=== PATIENT | male | born 1990 | race Caucasian/White ===

== ENCOUNTER 2019-07-14 15:16 | Emergency (ER) | payer OTHER ==
[~2019-07-14] VITALS: Ht 182.9 cm; Wt 97.5 kg
--- NOTE | 2019-07-14 15:19 | NUR ---
[facility] at bedside speaking to the patient.
--- NOTE | 2019-07-14 15:20 | NUR ---
PATIENT TO [facility]
[2019-07-14 15:21] VITALS: BP_SYST 121
[2019-07-14] MEDS ORDERED: IBUPROFEN 800 MG TABLET PO ONE (15:45)
[2019-07-14] MEDS ORDERED: NACL 0.9% 1,000 ML IV ONE (16:30)
[2019-07-14] MEDS ORDERED: MORPHINE 4 MG/ML INJ. SYRINGE IVP ONE (16:30)
[2019-07-14 17:47] VITALS: BP_SYST 122
--- NOTE | 2019-07-14 17:47 | NUR ---
Patient given written and verbal discharge instructions and verbalizes understanding. ER MD discussed with patient the results and treatment provided. Patient in stable condition. ID arm band removed. IV catheter removed intact and dressing applied, no active bleeding. Rx of Garrett and Motrin given. Patient educated on pain management and to follow up with PMD. Pain Scale 0/10. Opportunity for questions provided and answered. Medication side effect fact sheet provided.
== END 2019-07-14 17:47 | disposition home or self-care (01) ==
LOC: SED 15:16
DX: S52.592A Other fractures of lower end of left radius, initial encounter for closed fracture (principal); S52.612A Displaced fracture of left ulna styloid process, initial encounter for closed fracture; V29.9XXA Motorcycle rider (driver) (passenger) injured in unspecified traffic accident, initial encounter; Y93.89 Activity, other specified; Y92.89 Other specified places as the place of occurrence of the external cause; Y99.8 Other external cause status
CPT/HCPCS: 29125; 73090; 73110; 96374; 99284; J2270; J7030